=== PATIENT | female | born 1980 | race Caucasian/White ===

== ENCOUNTER 2020-07-28 00:47 | Emergency (ER) | payer OTHER ==
[~2020-07-28] VITALS: Ht 157.5 cm; Wt 50.9 kg
[2020-07-28] MEDS ORDERED: ondansetron/PF 4mg/2ml inj IV ONE (01:10)
[2020-07-28] MEDS ORDERED: normal saline 1000ML IV soln IVB ONE (01:10)
[2020-07-28] MEDS ORDERED: thiamine inj. 100 MG in normal saline 100ml IV soln 99 ML IV ONE (01:10)
[2020-07-28] MEDS ORDERED: magnesium 2GM in 50ml NS 50 ML IV ONE (01:10)
[2020-07-28 02:08] LABS: BASOPHILS % (AUTO) 0.2 % (0-1); EOSINOPHILS % (AUTO) 0.3 % (0-6); HEMATOCRIT 38.9 % (35.0-45.0); HEMOGLOBIN 13.4 g/dl (12.0-16.0); LYMPHOCYTES # (AUTO) 2.4 X10'3 (1.1-4.8); LYMPHOCYTES % (AUTO) 15.2 % (21-51); MEAN CORPUSCULAR HEMOGLOBIN 33.3 PG (27.0-31.0); MEAN CORPUSCULAR HGB CONC 34.3 g/dL (33.0-36.5); MEAN CORPUSCULAR VOLUME 96.9 FL (78-98); MEAN PLATELET VOLUME 7.7 FL (7.4-10.4); MONOCYTES # (AUTO) 0.7 X10'3 (0-0.9); MONOCYTES % (AUTO) 4.6 % (2-12); NEUTROPHILS # (AUTO) 12.7 X10'3 (1.8-7.7); NEUTROPHILS % (AUTO) 79.7 % (42-75); PLATELET COUNT 248 X10'3 (140-440); RED BLOOD COUNT 4.02 X10'6 (4.20-5.60); WHITE BLOOD COUNT 15.9 X10'3 (4.5-11.0)
[2020-07-28 02:14] LABS: ALANINE AMINOTRANSFERASE 23 U/L (12-78); ALBUMIN 3.4 G/DL (3.4-5.0); ALBUMIN/GLOBULIN RATIO 1.1 (1.1-1.5); ALKALINE PHOSPHATASE 60 IU/L (46-116); ANION GAP 7 (8-16); ASPARTATE AMINO TRANSFERASE 17 U/L (10-37); BILIRUBIN,TOTAL 0.2 MG/DL (0.1-1.0); BLOOD UREA NITROGEN 8 MG/DL (7-18); BUN/CREATININE RATIO 11.9 (6.6-38.0); CALCIUM 8.5 MG/DL (8.5-10.1); CHLORIDE 104 MMOL/L (99-107); CREATININE 0.67 MG/DL (0.40-0.90); ETHANOL 0.093 GM/DL (0.0-0.010); GLUCOSE 126 MG/DL (70-104); MAGNESIUM 1.8 MG/DL (1.5-2.4); POTASSIUM 3.3 MMOL/L (3.5-5.1); SODIUM 138 MMOL/L (135-145); TOTAL CARBON DIOXIDE 26.8 MMOL/L (24-32); TOTAL PROTEIN 6.6 G/DL (6.4-8.2); eGFR > 90 ML/MIN
[2020-07-28] MEDS ORDERED: phenobarbital inj 260 MG in normal saline 100ml IV soln 100 ML IV ONE (02:25)
--- NOTE | 2020-07-28 02:45 | NUR ---
pt amb with steady gait to restroom, no dizziness
[2020-07-28 03:24] LABS: CLARITY,URINE CLEAR (Clear); COLOR,URINE YELLOW (Yellow); GLUCOSE, URINE NEGATIVE (Neg); KETONES,URINE NEGATIVE (Neg); LEUKOCYTE ESTERASE ,URINE NEGATIVE (Neg); OCCULT BLOOD,URINE TRACE-INTACT (Neg); PROTEIN,URINE NEGATIVE (Neg); UROBILINOGEN,URINE 0.2 E.U/dL (0.2-1.0)
[2020-07-28 03:25] LABS: URINE HCG NEGATIVE (NEG)
[2020-07-28 03:30] LABS: BACTERIA,URINE NONE SEEN /HPF (Neg); NITRITES, URINE NEGATIVE (Neg); RBC,URINE 0-2 /HPF (0-2); UA COLLECTION TYPE CLN CATCH MIDSTREAM; WBC,URINE NONE SEEN /HPF (0-4)
[2020-07-28 03:31] LABS: SQUAMOUS EPITHELIAL CELL,UR NONE SEEN /LPF (FEW)
[2020-07-28 03:58] LABS: URINE AMPHETAMINE SCREEN NEGATIVE (Neg); URINE BARBITUATE SCREEN NEGATIVE (Neg); URINE BENZODIAZEPINES SCREEN NEGATIVE (Neg); URINE CANNABINOID SCREEN NEGATIVE (Neg); URINE COCAINE SCREEN NEGATIVE (Neg); URINE METHADONE SCREEN NEGATIVE (Neg); URINE OPIATE SCREEN NEGATIVE (Neg); URINE PHENCYCLIDINE SCREEN NEGATIVE (Neg)
--- NOTE | 2020-07-28 04:10 | NUR ---
pt has ride home with friend,
[2020-07-28 05:28] VITALS: BP 108/69
== END 2020-07-28 05:31 | disposition home or self-care (01) ==
LOC: ER 00:48
DX: F10.129 Alcohol abuse with intoxication, unspecified (principal); Y90.0 Blood alcohol level of less than 20 mg/100 ml
CPT/HCPCS: 36415; 80053; 80305; 80320; 81001; 81025; 83735; 85025; 96365; 96366; 96368; 96375; 99285; J2405; J2560; J3411; J3475; J7030

== ENCOUNTER 2021-06-02 20:23 | Inpatient (IN) | payer OTHER ==
[~2021-06-02] VITALS: Ht 160 cm; Wt 52.2 kg
[2021-06-02] MEDS ORDERED: ketorolac trometh. 30mg/ml inj. IM STA (20:33)
[2021-06-02] MEDS ORDERED: HYDROcodone/acetaminophen 5mg/325mg tablet PO ONE (20:35)
[2021-06-02] MEDS ORDERED: temazepam 15mg capsule PO PRN (21:00)
--- NOTE | 2021-06-02 21:30 | NUR ---
PT REFUSES IV, STATES SHE CAN BREATH NOW AND FEELS LIKE SHE CAN GO HOME. MD NOTIFIED.
[2021-06-02] MEDS ORDERED: iohexol 300mg/ml 100ml inj. ONE (21:43)
[2021-06-02 22:05] LABS: BASOPHILS % (AUTO) 0.3 % (0-1); EOSINOPHILS % (AUTO) 0.2 % (0-6); HEMATOCRIT 39.5 % (35.0-45.0); HEMOGLOBIN 13.4 g/dl (12.0-16.0); LYMPHOCYTES # (AUTO) 1.9 X10'3 (1.1-4.8); LYMPHOCYTES % (AUTO) 13.9 % (21-51); MEAN CORPUSCULAR HGB CONC 33.9 g/dL (33.0-36.5); MEAN CORPUSCULAR VOLUME 97.2 FL (78-98); MEAN PLATELET VOLUME 7.7 FL (7.4-10.4); MONOCYTES # (AUTO) 0.6 X10'3 (0-0.9); MONOCYTES % (AUTO) 4.5 % (2-12); NEUTROPHILS # (AUTO) 10.9 X10'3 (1.8-7.7); NEUTROPHILS % (AUTO) 81.1 % (42-75); PLATELET COUNT 233 X10'3 (140-440); RED BLOOD COUNT 4.06 X10'6 (4.20-5.60); RED CELL DISTRIBUTION WIDTH 13.2 % (11.5-14.5); WHITE BLOOD COUNT 13.4 X10'3 (4.5-11.0)
[2021-06-02 22:20] LABS: PARTIAL THROMBOPLASTIN TIME 23 SECONDS (22-32)
[2021-06-02] MEDS ORDERED: LORazepam 1 MG tablet PO ONE (22:20)
[2021-06-02] MEDS ORDERED: nicotine 7mg patch - 24hr TD ONE (22:20)
[2021-06-02] MEDS ORDERED: LORazepam 0.5 MG tablet PO ONE (22:20)
[2021-06-02] MEDS ORDERED: nicotine 7mg patch - 24hr TD SCH (22:20)
[2021-06-02 22:23] LABS: ALANINE AMINOTRANSFERASE 23 U/L (12-78); ALBUMIN 2.5 G/DL (3.4-5.0); ALBUMIN/GLOBULIN RATIO 0.6 (1.1-1.5); ALKALINE PHOSPHATASE 66 IU/L (46-116); ANION GAP 11 (8-16); ASPARTATE AMINO TRANSFERASE 21 U/L (10-37); BILIRUBIN,TOTAL 0.2 MG/DL (0.1-1.0); BLOOD UREA NITROGEN 4 MG/DL (7-18); BUN/CREATININE RATIO 5.8 (6.6-38.0); CHLORIDE 102 MMOL/L (99-107); CREATININE 0.69 MG/DL (0.40-0.90); GLUCOSE 104 MG/DL (70-104); POTASSIUM 3.5 MMOL/L (3.5-5.1); SODIUM 137 MMOL/L (135-145); TOTAL CARBON DIOXIDE 24.2 MMOL/L (24-32); eGFR > 90 ML/MIN
[2021-06-02] MEDS ORDERED: ondansetron/PF 4mg/2ml inj IV ONE (23:40)
[2021-06-02] MEDS ORDERED: morphine 4 MG/ML inj SYRINge ONE (23:41)
[2021-06-02] MEDS: morphine 4 MG/ML inj SYRINge IV ONE (23:49)
[2021-06-02] MEDS ORDERED: ondansetron 4mg rapidly disintigrating tab PO PRN (23:50)
[2021-06-02] MEDS ORDERED: mag hydrox/Alum hydrox/simeth 30ml oral suspension PO PRN ×2 (23:50→23:55)
[2021-06-02] MEDS ORDERED: acetaminophen 650mg rectal suppository RC PRN (23:50)
[2021-06-02] MEDS ORDERED: diphenhydrAMINE 50 mg/ml inj IV PRN (23:50)
[2021-06-02] MEDS ORDERED: HYDROcodone/acetaminophen 5mg/325mg tablet PO PRN (23:50)
[2021-06-02] MEDS ORDERED: magnesium hydroxide 30ml (MOM) UD suspension PO PRN (23:50)
[2021-06-02] MEDS ORDERED: HYDROmorphone inj. 0.5 MG/0.5 ML DISP.SYRIN IV PRN (23:50)
[2021-06-02] MEDS ORDERED: diphenhydrAMINE 25mg capsule PO PRN (23:50)
[2021-06-02] MEDS ORDERED: ondansetron/PF 4mg/2ml inj IV PRN (23:50)
[2021-06-02] MEDS ORDERED: acetaminophen 325mg tablet PO PRN ×2 (23:50)
[2021-06-02] MEDS ORDERED: morphine 2 MG/ML inj. syringe IV PRN (23:50)
[2021-06-02] MEDS ORDERED: haloperidol lactate 5mg/ml inj IM PRN (23:55)
[2021-06-02] MEDS ORDERED: LORazepam 1 MG tablet PO PRN (23:55)
[2021-06-02] MEDS ORDERED: loperamide 2mg capsule PO PRN (23:55)
[2021-06-02] MEDS ORDERED: cyclobenzaprine 10mg tablet PO PRN (23:55)
[2021-06-03] MEDS: dextrose 5%-1/2 normal saline 1,000 ML IV SCH ×3 (00:06→22:42)
[2021-06-03 00:23] LABS: PHOSPHORUS 2.6 MG/DL (2.3-4.5)
[2021-06-03 03:42] LABS: BASOPHILS % (AUTO) 0.2 % (0-1); EOSINOPHILS % (AUTO) 0.2 % (0-6); HEMATOCRIT 36.5 % (35.0-45.0); HEMOGLOBIN 12.5 g/dl (12.0-16.0); LYMPHOCYTES # (AUTO) 2.7 X10'3 (1.1-4.8); LYMPHOCYTES % (AUTO) 18.2 % (21-51); MEAN CORPUSCULAR HEMOGLOBIN 33.3 PG (27.0-31.0); MEAN CORPUSCULAR HGB CONC 34.4 g/dL (33.0-36.5); MEAN PLATELET VOLUME 8.1 FL (7.4-10.4); MONOCYTES # (AUTO) 0.7 X10'3 (0-0.9); MONOCYTES % (AUTO) 4.7 % (2-12); NEUTROPHILS # (AUTO) 11.5 X10'3 (1.8-7.7); NEUTROPHILS % (AUTO) 76.7 % (42-75); PLATELET COUNT 221 X10'3 (140-440); RED BLOOD COUNT 3.76 X10'6 (4.20-5.60); RED CELL DISTRIBUTION WIDTH 13.1 % (11.5-14.5); WHITE BLOOD COUNT 14.9 X10'3 (4.5-11.0)
[2021-06-03 03:56] LABS: ALANINE AMINOTRANSFERASE 21 U/L (12-78); ALKALINE PHOSPHATASE 62 IU/L (46-116); ANION GAP 10 (8-16); ASPARTATE AMINO TRANSFERASE 22 U/L (10-37); BILIRUBIN,TOTAL 0.3 MG/DL (0.1-1.0); BLOOD UREA NITROGEN 5 MG/DL (7-18); BUN/CREATININE RATIO 9.1 (6.6-38.0); CALCIUM 7.3 MG/DL (8.5-10.1); CHLORIDE 108 MMOL/L (99-107); CREATININE 0.55 MG/DL (0.40-0.90); GLUCOSE 89 MG/DL (70-104); LIPASE < 50 U/L (73-393); SODIUM 141 MMOL/L (135-145); TOTAL CARBON DIOXIDE 23.1 MMOL/L (24-32); TOTAL PROTEIN 6.1 G/DL (6.4-8.2); eGFR > 90 ML/MIN
[2021-06-03] MEDS: morphine 4 MG/ML inj SYRINge IV ONE (06:13)
[2021-06-03] MEDS: pantoprazole 40mg Tablet.DR PO SCH (07:41)
[2021-06-03] MEDS ORDERED: folic acid inj. 2 MG, thiamine inj. 100 MG, MVI, adult No.4 with vit. K 10 ML in dextro... IV SCH ×4 (08:00)
[2021-06-03] MEDS: docusate sod 100mg capsule PO SCH ×2 (08:00→20:24)
[2021-06-03] MEDS: HYDROcodone/acetaminophen 10/325mg tab PO PRN ×3 (08:47→19:24)
[2021-06-03] MEDS: multivitamins, therapeutics tablet PO SCH (08:47)
[2021-06-03] MEDS: thiamine 100mg tablet PO SCH (08:48)
[2021-06-03] MEDS: folic acid 1mg tablet PO SCH (08:48)
[2021-06-03] MEDS ORDERED: fentaNYL/PF 50MCG/1 ML 2ML syringe ONE (08:56)
--- NOTE | 2021-06-03 08:59 | NUR ---
pt. to ct to place chest tube left side.
[2021-06-03 09:15] VITALS: BP 161/87
[2021-06-03 09:20] VITALS: BP 150/23
[2021-06-03] MEDS ORDERED: NO HOME MEDS (11:04)
[2021-06-03] MEDS: nicotine 7mg patch - 24hr TD SCH (14:44)
[2021-06-04] MEDS: ketorolac tromethamine 15mg/ml inj. IV SCH ×2 (00:21→09:45)
[2021-06-04] MEDS: morphine 2 MG/ML inj. syringe IV PRN ×2 (00:21→07:40)
[2021-06-04 01:33] LABS: BASOPHILS % (AUTO) 0.5 % (0-1); EOSINOPHILS % (AUTO) 0.5 % (0-6); HEMATOCRIT 37.6 % (35.0-45.0); HEMOGLOBIN 13.2 g/dl (12.0-16.0); LYMPHOCYTES # (AUTO) 2.4 X10'3 (1.1-4.8); LYMPHOCYTES % (AUTO) 28.7 % (21-51); MEAN CORPUSCULAR HEMOGLOBIN 33.5 PG (27.0-31.0); MEAN CORPUSCULAR VOLUME 95.9 FL (78-98); MEAN PLATELET VOLUME 7.4 FL (7.4-10.4); MONOCYTES # (AUTO) 0.6 X10'3 (0-0.9); MONOCYTES % (AUTO) 7.7 % (2-12); NEUTROPHILS # (AUTO) 5.3 X10'3 (1.8-7.7); NEUTROPHILS % (AUTO) 62.6 % (42-75); PLATELET COUNT 207 X10'3 (140-440); RED BLOOD COUNT 3.92 X10'6 (4.20-5.60); RED CELL DISTRIBUTION WIDTH 13.4 % (11.5-14.5); WHITE BLOOD COUNT 8.4 X10'3 (4.5-11.0)
[2021-06-04 01:49] LABS: ALANINE AMINOTRANSFERASE 18 U/L (12-78); ALBUMIN 3.2 G/DL (3.4-5.0); ALKALINE PHOSPHATASE 80 IU/L (46-116); ANION GAP 5 (8-16); ASPARTATE AMINO TRANSFERASE 16 U/L (10-37); BILIRUBIN,TOTAL 0.3 MG/DL (0.1-1.0); BLOOD UREA NITROGEN 10 MG/DL (7-18); BUN/CREATININE RATIO 15.2 (6.6-38.0); CALCIUM 8.5 MG/DL (8.5-10.1); CHLORIDE 106 MMOL/L (99-107); CREATININE 0.66 MG/DL (0.40-0.90); GLUCOSE 114 MG/DL (70-104); LIPASE 60 U/L (73-393); SODIUM 141 MMOL/L (135-145); TOTAL CARBON DIOXIDE 30.1 MMOL/L (24-32); TOTAL PROTEIN 6.5 G/DL (6.4-8.2); eGFR > 90 ML/MIN
[2021-06-04 03:50] VITALS: BP 122/77
[2021-06-04] MEDS: pantoprazole 40mg Tablet.DR PO SCH (07:38)
--- NOTE | 2021-06-04 07:41 | NUR ---
PT REQUESTING SOMETHING FOR PAIN OF 06/27. PT GIVEN 2MG MORPHINE IV PER ADMIT ORDERS
[2021-06-04] MEDS: docusate sod 100mg capsule PO SCH (07:58)
[2021-06-04] MEDS: folic acid 1mg tablet PO SCH (09:45)
[2021-06-04] MEDS: thiamine 100mg tablet PO SCH (09:45)
[2021-06-04] MEDS: nicotine 7mg patch - 24hr TD SCH (09:45)
[2021-06-04] MEDS: multivitamins, therapeutics tablet PO SCH (09:45)
[2021-06-04] MEDS: dextrose 5%-1/2 normal saline 1,000 ML IV SCH (09:46)
[2021-06-04] MEDS: HYDROcodone/acetaminophen 10/325mg tab PO PRN (12:17)
--- NOTE | 2021-06-04 12:44 | NUR ---
O2 Sat at rest on room air: 98% If below 89%: Recovery O2 Sat at rest on ___LPM:___%:___% via (mask/nasal cannula, etc..) No further documentation is necessary. If O2 Sat did not drop below 89% on room air,ambulate patient on room air. O2 Sat while ambulating on room air: 97% Recovery O2 Sat while ambulating on ___LPM:___% No further documentation is necessary. If patient does not drop below 89% while ambulating, he/she does not qualify for home O2.
--- NOTE | 2021-06-04 12:55 | NUR ---
Dr. Lynn paged: Dorina Fournier Rm [id number]: Chest x-ray has returned, Pt does not qualify for home O2. Marvin [id number].
--- NOTE | 2021-06-04 14:00 | NUR ---
Patient is stable for discharge per MD orders. All discharge instructions reviewed with patient and all questions answered. Patient will make own follow up appointment. PIV discontinued, cannula intact. linking machine operator discontinued. Belongings collected and sent with patient. Patient was wheeled to front of lobby where private vehicle was waiting.
== END 2021-06-04 14:00 | disposition home or self-care (01) | DRG 184 ==
LOC: ER 20:24 → ED HOLD 23:52 → PCU 3S 06-04 09:00
PROVIDERS: ADMIT Family Medicine; ATTEND Internal Medicine
PROC: BW241ZZ Computerized Tomography (CT Scan) of Chest and Abdomen using Low Osmolar Contrast (ICD-10-PCS; principal; 2021-06-02)
DX: S22.42XA Multiple fractures of ribs, left side, initial encounter for closed fracture (principal); J93.83 Other pneumothorax; F10.129 Alcohol abuse with intoxication, unspecified; W17.89XA Other fall from one level to another, initial encounter; Z72.0 Tobacco use; Y93.B2 Activity, push-ups, pull-ups, sit-ups; Y92.098 Other place in other non-institutional residence as the place of occurrence of the external cause; Y99.8 Other external cause status; Z71.6 Tobacco abuse counseling
CPT/HCPCS: 36415; 71046; 71101; 71250; 71260; 74176; 80053; 83690; 83735; 83880; 84100; 85025; 85610; 85730; 87081; 96372; 96374; 99285; G0378; J1885; J2270; J2405; J3010; Q9967

== ENCOUNTER 2023-05-23 22:16 | Emergency (ER) | payer OTHER ==
[~2023-05-23] VITALS: Ht 160 cm; Wt 59.1 kg
[~2023-05-23 22:16] MED LIST: NO HOME MEDS
[2023-05-23 22:27] VITALS: BP 131/86; PULSE 84; RESP 18; TEMP 98.3; O2SAT 99
[2023-05-24] MEDS ORDERED: OXYC-658 PO (12:39)
[2023-05-24] MEDS ORDERED: IBUP-1986 PO (12:39)
== END 2023-05-24 00:09 | disposition left against medical advice (07) ==
LOC: ER 22:16
DX: R22.41 Localized swelling, mass and lump, right lower limb (principal); Z53.21 Procedure and treatment not carried out due to patient leaving prior to being seen by health care provider
CPT/HCPCS: 99281

== ENCOUNTER 2023-05-24 10:21 | Emergency (ER) | payer OTHER ==
[~2023-05-24] VITALS: Ht 157.5 cm; Wt 59.1 kg
[2023-05-24 11:01] VITALS: BP 137/95; PULSE 75; RESP 18; TEMP 98.4; O2SAT 100
[2023-05-24] MEDS ORDERED: HYDROcodone/acetaminophen 10/325mg tab PO ONE (12:00)
[2023-05-24] MEDS ORDERED: OXYC-658 PO (12:39)
[2023-05-24] MEDS ORDERED: IBUP-1986 PO (12:39)
== END 2023-05-24 13:14 | disposition home or self-care (01) ==
LOC: ER 10:22
DX: S92.325A Nondisplaced fracture of second metatarsal bone, left foot, initial encounter for closed fracture (principal); S92.335A Nondisplaced fracture of third metatarsal bone, left foot, initial encounter for closed fracture; S92.345A Nondisplaced fracture of fourth metatarsal bone, left foot, initial encounter for closed fracture; Z72.89 Other problems related to lifestyle; W01.0XXA Fall on same level from slipping, tripping and stumbling without subsequent striking against object, initial encounter; Y93.89 Activity, other specified; Y92.89 Other specified places as the place of occurrence of the external cause; Y99.8 Other external cause status
CPT/HCPCS: 29515; 73630; 99283; A6446; A6449